=== PATIENT | female | born 1995 | race Caucasian/White ===

== ENCOUNTER 2016-11-27 19:09 | Emergency (ER) | payer MEDICAID, OTHER ==
[~2016-11-27] VITALS: Ht 152.4 cm; Wt 64.0 kg
[2016-11-27 19:25] VITALS: Ht 152.4 cm; Wt 64.0 kg
[2016-11-27 22:50] LABS: ADD SCAN DIFF NO
[2016-11-27 22:57] LABS: BASOPHIL # 0.1 10^3/ul (0.0-0.1); BASOPHILS % 0.6 % (0.0-2.0); EOSINOPHILS # 0.2 10^3/ul (0.0-0.5); EOSINOPHILS % 1.8 % (0.0-7.0); HEMATOCRIT 42.9 % (37.0-47.0); HEMOGLOBIN 14.5 g/dl (12.0-16.0); LYMPHOCYTES # 2.3 10^3/ul (0.8-2.9); LYMPHOCYTES % 22.5 % (18.0-55.0); MEAN CORPUSCULAR HEMOGLOBIN 31.5 pg (29.0-33.0); MEAN CORPUSCULAR HGB CONC 33.8 g/dl (32.0-37.0); MEAN CORPUSCULAR VOLUME 93.1 fl (72.0-104.0); MEAN PLATELET VOLUME 11.6 fl (7.4-10.4); MONOCYTE # 0.5 10^3/ul (0.3-0.9); MONOCYTES % 5.2 % (0.0-13.0); NEUTROPHIL # 7.1 10^3/ul (1.6-7.5); NEUTROPHILS % 69.7 % (30.0-74.0); PLATELET COUNT 236 10^3/UL (140-415); RED BLOOD COUNT 4.61 10^6/ul (4.20-5.40); RED CELL DISTRIBUTION WIDTH 12.8 % (11.5-14.5); WHITE BLOOD COUNT 10.2 10^3/ul (4.8-10.8)
[2016-11-27 23:02] LABS: ADD UMIC YES; URINE BILIRUBIN (Dip) NEGATIVE (NEGATIVE); URINE BLOOD (Dip) 3+ (NEGATIVE); URINE COLOR LT. YELLOW (YELLOW); URINE GLUCOSE (Dip) NEGATIVE (NEGATIVE); URINE KETONES (Dip) 3+ (NEGATIVE); URINE LEUKOCYTE ESTERASE (Dip) NEGATIVE (NEGATIVE); URINE NITRITE (Dip) NEGATIVE (NEGATIVE); URINE TOTAL PROTEIN (Dip) NEGATIVE (NEGATIVE); URINE UROBILINOGEN (Dip) 0.2 E.U./dL (0.1-1.0)
[2016-11-27 23:26] LABS: BACTERIA,URINE FEW; MUCUS,URINE FEW; SQUAMOUS EPITHELIAL CELL,UR FEW
--- NOTE | 2016-11-27 23:36 | RADRPT ---
PROCEDURE: US Pelvis. CLINICAL INDICATION: Vaginal bleeding. Reported . TECHNIQUE: Multiple sonographic images of the pelvis were obtained utilizing a transabdominal and endovaginal technique. The images were reviewed on a PACS workstation. COMPARISON: None available FINDINGS: Uterus: Normal in size, contour and echogenicity with no evidence for myometrial masses. Size is est imated at 9.20 x 528 x 3.8 cm. Cervix: In the lower uterine segment at the junction with the cervix is an ovoid relatively hypoech oic heterogeneous area that raises concern for blood clots and is approximately 1.8 x 1.1 cm without internal blood flow. A small amount of fluid within the cervical canal is present. Endometrium: Normal in thickness; 6.4 mm. No normal intrauterine is present Right ovary / adnexa: Normal in size estimated at 3.3 x 3.4 x 2.6 cm. No evidence for masses, norm al blood flow on Doppler interrogation. Left ovary/adnexa: Normal in size estimated at 2 x 1.7 x 1.5 cm. No evidence for solid masses, norm al blood flow on Doppler interrogation. Cul-de-sac: No evidence of free fluid. RPTAT:HJJR IMPRESSION: 1. Ovoid hypoechoic area within the lower uterine segment and upper cervix is concerning for blood clots with a small amount of fluid in the cervical canal, the findings believed to reflect a spontan eous in progress given the provided history of positive . 2. Normal endometrial thickness with no evidence of viable intrauterine gestation. Given the provi ded history, differential diagnostic possibilities would include spontaneous in progress, m issed , early intrauterine and ectopic . Correlation with serial serum B eta HCG levels and follow-up pelvic ultrasound as deemed clinically indicated. 3. Sonographically normal ovaries and adnexa. Physician Heidi Date Time Electronically viewed and signed by Physician Heidi on 11/27/2016 23:35 JR/
[2016-11-28] MEDS ORDERED: ACET500C5 PO (02:39)
[2016-11-28 03:08] VITALS: BP 117/74; PULSE 82; RESP 17; TEMP 98.8
--- NOTE | 2016-11-28 03:09 | ERD ---
ER Documentation Chief Complaint Date/Time DATE: 11/28/16 TIME: 03:05 Chief Complaint 4 weeks , vag bleeding x 15 days HPI 21-year-old female with no significant past medical history presents the ED as a states that she has been bleeding for the last 20 days. States that it is getting slightly worse with blood clots. Denies any passing of tissue. Denies any dysuria, urgency, frequency, flank pain, vaginal discharge, abdominal pain, flank pain, nausea, vomiting, chest pain, shortness of breath. States that she is unsure of the exact date of her last menses. States that she does not have an LUMP INSPECTOR. Reports that she has had a previous . ROS All systems reviewed and are negative except as per history of present illness. Medications Home Meds Active Scripts Acetaminophen* (Tylophen*) 500 Mg Capsule, 1 CAP PO Q6H Y for PAIN AND OR ELEVATED TEMP, #20 CAP Prov:THELMA SALMERON PA-C 11/28/16 Allergies Allergies: Coded Allergies: No Known Allergy (Unverified , 11/27/16) PMhx/Soc History of Surgery: Yes (C- SECTION X 1) Anesthesia Reaction: No Hx Neurological Disorder: No Hx Respiratory Disorders: No Hx Cardiac Disorders: No Hx Psychiatric Problems: No Hx Miscellaneous Medical Probl: No Hx Alcohol Use: No Hx Substance Use: No Hx Tobacco Use: No Smoking Status: Never smoker Physical Exam Vitals Vital Signs Date Time Temp Pulse Resp B/P Pulse Ox O2 Delivery O2 Flow Rate FiO2 11/27/16 19:25 98.4 95 20 140/84 99 Physical Exam Const: Dlr-nru-rhrbcwalq, well-nourished. In no acute distress. Head: Atraumatic, normocephalic Eyes: Normal Conjunctiva without injection. No purulent discharge. ENT: Normal external ear, nose. Moist oropharynx without tonsillar exudates. Non -erythematous pharynx. Uvula midline. No drooling. No trismus. Neck: No cervical midline tenderness. Full range of motion. No meningismus. No cervical lymphadenopathy. No JVD. Resp: Clear to auscultation bilaterally. No wheezing, rhonchi, rales, or crackles. No accessory muscle use. No retractions. Cardio: Regular rate and rhythm. No murmurs, rubs or gallops. Abd: Soft, nontender, non distended. Normal bowel sounds. No palpable masses. No rebound tenderness. No guarding. Negative McBurney's point. Negative psoas sign. Negative obturator sign. : See exam in MDM. Skin: No petechiae or rashes Back: No midline tenderness. No CVA tenderness. Ext: No cyanosis, or edema. Neur: Awake and alert. Normal gait. Normal coordination. Psych: Normal Mood and Affect Result Diagram: 11/27/160 Results 24 hrs Laboratory Tests Test 11/27/16 22:40 Basophils # 0.110^3/ul Basophils % 0.6% Beta HCG, Quantitative 32.9mIU/ml Eosinophils # 0.210^3/ul Eosinophils % 1.8% Hematocrit 42.9% Hemoglobin 14.5g/dl Lymphocytes # 2.310^3/ul Lymphocytes % 22.5% Mean Corpuscular Hemoglobin 31.5pg Mean Corpuscular Hemoglobin Concent 33.8g/dl Mean Corpuscular Volume 93.1fl Mean Platelet Volume 11.6fl Monocytes # 0.510^3/ul Monocytes % 5.2% Neutrophils # 7.110^3/ul Neutrophils % 69.7% Nucleated Red Blood Cells # 0.010^3/ul Nucleated Red Blood Cells % 0.0/100WBC Platelet Count 55718^3/UL Red Blood Count 4.6110^6/ul Red Cell Distribution Width 12.8% Urine Bacteria FEW Urine Bilirubin NEGATIVE Urine Clarity SL HAZY Urine Color LT. YELLOW Urine Glucose NEGATIVE% Urine Hemoglobin 3+ Urine Ketones 3+ Urine Leukocyte Esterase NEGATIVE Urine Microscopic RBC 10-25/HPF Urine Microscopic WBC 0-2/HPF Urine Mucus FEW Urine Nitrite NEGATIVE Urine Specific [place] >=1.030 Urine Squamous Epithelial Cells FEW Urine Total Protein NEGATIVE Urine Urobilinogen 0.2 E.U./dL Urine pH 6.0 White Blood Count 10.210^3/ul Procedures/[facility] This is a 21-year-old female with no significant past medical history who is a presents the ED complaining of intermittent vaginal bleeding for the last 20 days. Patient is afebrile and nontoxic-appearing. An ultrasound, beta-hCG, CBC, type and RH, UA was ordered to evaluate patient. CBC: No evidence of severe infection or anemia Urine: No elevation in nitrites, leukocyte esterase, hematuria. No evidence of UTI Rh: B positive. No indication for Rhogam at this time. beta Hc.9 PROCEDURE: US Pelvis. CLINICAL INDICATION: Vaginal bleeding. Reported . TECHNIQUE: Multiple sonographic images of the pelvis were obtained utilizing a transabdominal and endovaginal technique. The images were reviewed on a PACS workstation. COMPARISON: None available FINDINGS: Uterus: Normal in size, contour and echogenicity with no evidence for myometrial masses. Size is estimated at 9.20 x 528 x 3.8 cm. Cervix: In the lower uterine segment at the junction with the cervix is an ovoid relatively hypoechoic heterogeneous area that raises concern for blood clots and is approximately 1.8 x 1.1 cm without internal blood flow. A small amount of fluid within the cervical canal is present. Endometrium: Normal in thickness; 6.4 mm. No normal intrauterine is present Right ovary / adnexa: Normal in size estimated at 3.3 x 3.4 x 2.6 cm. No evidence for masses, normal blood flow on Doppler interrogation. Left ovary/adnexa: Normal in size estimated at 2 x 1.7 x 1.5 cm. No evidence for solid masses, normal blood flow on Doppler interrogation. Cul-de-sac: No evidence of free fluid. RPTAT:HJJR IMPRESSION: 1. Ovoid hypoechoic area within the lower uterine segment and upper cervix is concerning for blood clots with a small amount of fluid in the cervical canal, the findings believed to reflect a spontaneous in progress given the provided history of positive . 2. Normal endometrial thickness with no evidence of viable intrauterine gestation. Given the provided history, differential diagnostic possibilities would include spontaneous in progress, missed , early intrauterine and ectopic . Correlation with serial serum Beta HCG levels and follow-up pelvic ultrasound as deemed clinically indicated. 3. Sonographically normal ovaries and adnexa. Patient's bleeding symptoms have stabilized while in the department. This case was discussed with my supervising physician, Dr. Torre. The left breast was also consulted, Dr. Gonzáles stated that patient proceed to a pelvic exam. Patient's pelvic exam was noted to have dark red blood and string like in nature. No active bleeding noted. Low suspicion for symptomatic anemia, ectopic , sepsis, PID, appendicitis, ovarian torsion, tubo-ovarian abscess, surgical abdomen, or other emergent conditions. Patient was educated that there is a risk for threatened . Discharge medications: Tylenol Patient to follow up with LUMP INSPECTOR or here in the ED in 2 days for further evaluation and treatment with a repeat beta hCG and ultrasound. Patient is to return sooner to the ED for any worsening symptoms. Patient's questions were answered. Patient understood and agreed with discharge plan. Departure Diagnosis: Primary Impression: Vaginal bleeding in Trimester: first trimester Qualified Code: O46.91 - Vaginal bleeding in , first trimester Condition: Stable Patient Instructions: Possible Miscarriage (Threatened ) Referrals: COMMUNITY CLINICS YOU HAVE RECEIVED A MEDICAL SCREENING EXAM AND THE RESULTS INDICATE THAT YOU DO NOT HAVE A CONDITION THAT REQUIRES URGENT TREATMENT IN THE EMERGENCY DEPARTMENT. FURTHER EVALUATION AND TREATMENT OF YOUR CONDITION CAN WAIT UNTIL YOU ARE SEEN IN YOUR DOCTORS OFFICE WITHIN THE NEXT 1-2 DAYS. IT IS YOUR RESPONSIBILITY TO MAKE AN APPOINTMENT FOR FOLOW-UP CARE. IF YOU HAVE A PRIMARY DOCTOR --you should call your primary doctor and schedule an appointment IF YOU DO NOT HAVE A PRIMARY DOCTOR YOU CAN CALL OUR PHYSICIAN REFERRAL HOTLINE AT IF YOU CAN NOT AFFORD TO SEE A PHYSICIAN YOU CAN CHOSE FROM THE FOLLOWING [facility] [address] [facility]. [facility] [address] [facility]. [facility] [address] [facility]. [facility] [address] [facility]. [facility] [address] [facility]. [facility]. [address] [facility]. [facility] YOU HAVE RECEIVED A MEDICAL SCREENING EXAM AND THE RESULTS INDICATE THAT YOU DO NOT HAVE A CONDITION THAT REQUIRES URGENT TREATMENT IN THE EMERGENCY DEPARTMENT. FURTHER EVALUATION AND TREATMENT OF YOUR CONDITION CAN WAIT UNTIL YOU ARE SEEN IN YOUR DOCTORS OFFICE WITHIN THE NEXT 1-2 DAYS. IT IS YOUR RESPONSIBILITY TO MAKE AN APPOINTMENT FOR FOLOW-UP CARE. IF YOU HAVE A PRIMARY DOCTOR --you should call your primary doctor and schedule and appointment IF YOU DO NOT HAVE A PRIMARY DOCTOR YOU CAN CALL OUR PHYSICIAN REFERRAL HOTLINE AT . IF YOU CAN NOT AFFORD TO SEE A PHYSICIAN YOU CAN CHOSE FROM THE FOLLOWING [facility] INSTITUTIONS: [facility] [address] [place] [address] [facility] [address] [place] [address] [facility] [address] [place] [address] LU[facility] [place] [address] [facility] [address] [place] [address] OFFICE FAX , [facility] [address] [place], [place] [id number] DR. FERNÁNDEZFORMERLY [facility] [address] [place] [address] DR RAMIREZ, [facility] [address] [facility], [facility] [address], [facility] [address] [address] [facility] [address] [place] [address] [facility] [address] [place] [address] [address] [facility] [address] [address] [facility] [address] [facility] [address] [address] [place], [place] [address] [address], [facility] [address] [address] [facility] [address] [place], [place] [id number] [facility] Hours: 8:00 am - 5:00 pm Additional Instructions: Seguimiento en 2 león para pilo repeticin de beta hcg angelo y ultrasonido Regrese a estas instalaciones si no se mejora elijah esperbamos o elijah le dijimos. THELMA SALMERON PA-C Nov 28, 2016 03:08
== END 2016-11-28 03:08 | disposition home or self-care (01) ==
LOC: FTE 19:09
DX: O46.91 Antepartum hemorrhage, unspecified, first trimester (principal); Z3A.01 Less than 8 weeks gestation of pregnancy
CPT/HCPCS: 36415; 76801; 76817; 81001; 84702; 85025; 86900; 86901; Z7502; 81003

== ENCOUNTER 2016-11-29 18:57 | Emergency (ER) | payer MEDICAID ==
[~2016-11-29] VITALS: Wt 63.5 kg
[~2016-11-29 18:57] MED LIST: ACET500C5 PO
--- NOTE | 2016-11-29 22:30 | ERD ---
ER Documentation Chief Complaint Date/Time DATE: 11/29/16 TIME: 22:26 Chief Complaint VAG BLEEDING FOR THE PAST FEW WKS. NODYSURIA OR HEMATURIA. 5 WKS PREG HPI This a 21-year-old female presents to the emergency department today for vaginal bleeding. Patient states she is here to check her hormones again. States she is . States she continues to have some vaginal bleeding. Denies any fevers or chills, dysuria. ROS All systems reviewed and are negative except as per history of present illness. Medications Home Meds Active Scripts Acetaminophen* (Tylophen*) 500 Mg Capsule, 1 CAP PO Q6H Y for PAIN AND OR ELEVATED TEMP, #30 CAP Prov:MARA ROMERO PA-C 11/30/16 Acetaminophen* (Tylophen*) 500 Mg Capsule, 1 CAP PO Q6H Y for PAIN AND OR ELEVATED TEMP, #20 CAP Prov:THELMA SALMERON PA-C 11/28/16 Allergies Allergies: Coded Allergies: No Known Allergy (Unverified , 11/27/16) PMhx/Soc Medical and Surgical Hx: pt denies Medical Hx History of Surgery: Yes (C- SECTION X 1) Anesthesia Reaction: No Hx Neurological Disorder: No Hx Respiratory Disorders: No Hx Cardiac Disorders: No Hx Psychiatric Problems: No Hx Miscellaneous Medical Probl: No Hx Alcohol Use: No Hx Substance Use: No Hx Tobacco Use: No Physical Exam Vitals Vital Signs Date Time Temp Pulse Resp B/P Pulse Ox O2 Delivery O2 Flow Rate FiO2 11/29/16 19:12 98.8 90 20 134/85 99 Physical Exam Const: No acute distress Head: Atraumatic Eyes: Normal Conjunctiva ENT: Normal External Ears, Nose and Mouth. Neck: Full range of motion..~ No meningismus. Resp: Clear to auscultation bilaterally Cardio: Regular rate and rhythm, no murmurs Abd: Soft, non tender, non distended. Normal bowel sounds. No right lower quadrant pain. No left lower quadrant pain. No tenderness at McBurney's. Skin: No petechiae or rashes Neur: Awake and alert Psych: Normal Mood and Affect Result Diagram: 11/29/16 2300 Results 24 hrs Laboratory Tests Test 11/29/16 23:00 Basophils # 0.110^3/ul Basophils % 1.2% Beta HCG, Quantitative 18.0mIU/ml Eosinophils # 0.310^3/ul Eosinophils % 4.2% Hematocrit 42.7% Hemoglobin 14.2g/dl Lymphocytes # 2.810^3/ul Lymphocytes % 36.5% Mean Corpuscular Hemoglobin 31.7pg Mean Corpuscular Hemoglobin Concent 33.3g/dl Mean Corpuscular Volume 95.3fl Mean Platelet Volume 11.4fl Monocytes # 0.610^3/ul Monocytes % 7.3% Neutrophils # 3.810^3/ul Neutrophils % 50.5% Nucleated Red Blood Cells # 0.010^3/ul Nucleated Red Blood Cells % 0.0/100WBC Platelet Count 38757^3/UL Red Blood Count 4.4810^6/ul Red Cell Distribution Width 12.9% White Blood Count 7.510^3/ul Procedures/MDM This is a 21-year-old female who presents to the emergency department today for vaginal bleeding in . Patient was seen here on November 27 and had a complete OB workup at that time. Her ultrasound 2 days ago showed an ovoid hypoechoic area within the lower uterine segment and upper cervix concerning for blood clots with a small amount of fluid in the cervical canal. The findings were believed to reflect a spontaneous in progress given the history of positive test. Patient also had a pelvic exam that showed no active bleeding noted. The labor's was consulted. Patient's beta quant 2 days ago was 32.9. I repeated a beta quant today as well as a CBC. Laboratory work shows no elevated white blood cell count. She is not anemic. Platelets are within normal limits. Beta quant hCG is 18 Patient's beta quant has decreased from 2 days ago. I have explained this to the patient that she has likely had a failed . Patient was instructed to follow-up with her ANIMAL CARE PROVIDER for further evaluation and management. She was instructed that she may continue to have vaginal bleeding. Patient has no abdominal pain on physical exam of low suspicion for ectopic , tubo- ovarian abscess, ovarian torsion or acute surgical abdomen. Patient declined pain medication here in the emergency department. We will give her prescription for Tylenol for home. I discussed the patient with Dr. Mejias and he does not feel the patient requires a repeat ultrasound at this time. At this time the patient is stable for discharge and outpatient management. Patient should follow up with their PCP in the next 1-2 days. They may return to the emergency department sooner for any persistent or worsening of symptoms. Patient understood and agreed with the plan. Departure Diagnosis: Primary Impression: Vaginal bleeding in patient at less than 20 weeks gestation MARA ROMERO PA-C Nov 29, 2016 22:30
[2016-11-29 23:19] LABS: ADD SCAN DIFF NO
[2016-11-29 23:26] LABS: BASOPHIL # 0.1 10^3/ul (0.0-0.1); BASOPHILS % 1.2 % (0.0-2.0); EOSINOPHILS # 0.3 10^3/ul (0.0-0.5); EOSINOPHILS % 4.2 % (0.0-7.0); HEMATOCRIT 42.7 % (37.0-47.0); HEMOGLOBIN 14.2 g/dl (12.0-16.0); LYMPHOCYTES # 2.8 10^3/ul (0.8-2.9); LYMPHOCYTES % 36.5 % (18.0-55.0); MEAN CORPUSCULAR HEMOGLOBIN 31.7 pg (29.0-33.0); MEAN CORPUSCULAR HGB CONC 33.3 g/dl (32.0-37.0); MEAN CORPUSCULAR VOLUME 95.3 fl (72.0-104.0); MEAN PLATELET VOLUME 11.4 fl (7.4-10.4); MONOCYTE # 0.6 10^3/ul (0.3-0.9); MONOCYTES % 7.3 % (0.0-13.0); NEUTROPHIL # 3.8 10^3/ul (1.6-7.5); NEUTROPHILS % 50.5 % (30.0-74.0); PLATELET COUNT 249 10^3/UL (140-415); RED BLOOD COUNT 4.48 10^6/ul (4.20-5.40); RED CELL DISTRIBUTION WIDTH 12.9 % (11.5-14.5); WHITE BLOOD COUNT 7.5 10^3/ul (4.8-10.8)
[2016-11-30] MEDS ORDERED: ACET500C5 PO (00:24)
[2016-11-30 00:35] VITALS: BP 128/79; PULSE 62; RESP 20; TEMP 98.8
== END 2016-11-30 00:40 | disposition home or self-care (01) ==
LOC: FTE 18:57
DX: O20.9 Hemorrhage in early pregnancy, unspecified (principal); Z3A.01 Less than 8 weeks gestation of pregnancy
CPT/HCPCS: 84702; 85025; Z7502; 99284

== ENCOUNTER 2017-06-25 15:17 | Emergency (ER) | payer SELFPAY ==
[~2017-06-25] VITALS: Ht 157.5 cm; Wt 61.4 kg
[2017-06-25] MEDS ORDERED: SOD CHLORIDE 0.9% 1,000 ML IV STA (15:24)
[2017-06-25 15:29] VITALS: Ht 157.5 cm; Wt 61.4 kg
[2017-06-25 16:07] LABS: BASOPHIL # 0.1 10^3/ul (0.0-0.1); BASOPHILS % 0.7 % (0.0-2.0); EOSINOPHILS % 0.1 % (0.0-7.0); HEMOGLOBIN 15.2 g/dl (12.0-16.0); LYMPHOCYTES % 16.3 % (18.0-55.0); MEAN CORPUSCULAR HEMOGLOBIN 32.1 pg (29.0-33.0); MEAN CORPUSCULAR HGB CONC 35.3 g/dl (32.0-37.0); MEAN CORPUSCULAR VOLUME 90.9 fl (72.0-104.0); MEAN PLATELET VOLUME 10.7 fl (7.4-10.4); MONOCYTE # 0.7 10^3/ul (0.3-0.9); MONOCYTES % 5.8 % (0.0-13.0); NEUTROPHIL # 9.4 10^3/ul (1.6-7.5); NEUTROPHILS % 76.9 % (30.0-74.0); PLATELET COUNT 324 10^3/UL (140-415); RED BLOOD COUNT 4.73 10^6/ul (4.20-5.40); RED CELL DISTRIBUTION WIDTH 12.3 % (11.5-14.5); WHITE BLOOD COUNT 12.2 10^3/ul (4.8-10.8)
[2017-06-25 16:19] LABS: ALANINE AMINOTRANSFERASE 32 IU/L (13-69); ALBUMIN 5.2 g/dl (3.3-4.9); ALBUMIN/GLOBULIN RATIO 1.36; ALKALINE PHOSPHATASE 106 IU/L (42-121); ANION GAP 19 (8-16); ASPARTATE AMINO TRANSFERASE 24 IU/L (15-46); BILIRUBIN,INDIRECT 0.3 mg/dl (0-1.1); BILIRUBIN,TOTAL 0.3 mg/dl (0.2-1.3); BLOOD UREA NITROGEN 4 mg/dl (7-20); CALCIUM 9.2 mg/dl (8.4-10.2); CARBON DIOXIDE 22 mmol/L (21-31); CHLORIDE 108 mmol/L (97-110); CREATININE 0.72 mg/dl (0.44-1.00); GLUCOSE 99 mg/dl (70-220); POTASSIUM 3.4 mmol/L (3.5-5.1); SODIUM 146 mmol/L (135-144)
[2017-06-25 16:21] LABS: ACETAMINOPHEN < 10.0 ug/ml (10.0-30.0); SALICYLATE < 1.0 mg/dl (5.0-30.0)
[2017-06-25] MEDS ORDERED: POTASSIUM CHLORIDE (SR) 20 MEQ TAB PO STA (16:39)
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
[2017-06-25 18:06] LABS: ADD UMIC YES; UR ASCORBIC ACID NEGATIVE (NEGATIVE); UR BACTERIA FEW /HPF (NONE SEEN); UR BILIRUBIN (Dip) NEGATIVE (NEGATIVE); UR BLOOD (Dip) 2+ mg/dL (NEGATIVE); UR CLARITY CLOUDY (CLEAR); UR COLOR YELLOW (YELLOW); UR GLUCOSE (Dip) 1+ mg/dL (NEGATIVE); UR KETONES (Dip) NEGATIVE (NEGATIVE); UR LEUKOCYTE ESTERASE (Dip) NEGATIVE Leu/ul (NEGATIVE); UR MUCUS MODERATE /HPF (NONE SEEN); UR NITRITE (Dip) NEGATIVE (NEGATIVE); UR RBC 2 /HPF (0-5); UR SPECIFIC GRAVITY (Dip) 1.015 (1.003-1.030); UR SQUAMOUS EPITHELIAL CELL MODERATE /HPF (FEW); UR TOTAL PROTEIN (Dip) 2+ mg/dl (NEGATIVE); UR UROBILINOGEN (Dip) NEGATIVE (NEGATIVE)
[2017-06-25 18:17] LABS: COCAINE Negative (NEGATIVE)
[2017-06-25 18:19] LABS: BARBITURATES Negative (NEGATIVE); BENZODIAZEPINES Negative (NEGATIVE); CANNABINOIDS Negative (NEGATIVE); OPIATES Negative (NEGATIVE)
== END 2017-06-25 17:54 | disposition home or self-care (01) ==
LOC: E/R 15:17
DX: R00.0 Tachycardia, unspecified (principal); F10.920 Alcohol use, unspecified with intoxication, uncomplicated; E87.6 Hypokalemia
CPT/HCPCS: 80053; 80306; 80307; 81001; 84703; 85025; 93005; J7030; 36415

== ENCOUNTER 2018-03-16 14:14 | Emergency (ER) | END 2018-03-16 18:45 | disposition home or self-care (01) ==